=== PATIENT | female | born 2005 | race Caucasian/White ===

== ENCOUNTER 2024-07-13 00:43 | Inpatient (IN) ==
[2024-07-13 01:09] VITALS: BMI 32.0
[2024-07-13 01:12] LABS: BILIRUBIN,URINE NEGATIVE (NEGATIVE); BLOOD/HEMOGLOBIN,URINE 5+ (NEGATIVE); GLUCOSE, URINE NEGATIVE (NEGATIVE); KETONES,URINE 2+ (NEGATIVE); LEUKOCYTE ESTERASE ,URINE 1+ (NEGATIVE); NITRITES,URINE NEGATIVE (NEGATIVE); PROTEIN,URINE 3+ (NEGATIVE); UROBILINOGEN,URINE NORMAL (NORMAL)
[2024-07-13 01:15] LABS: APPEARANCE,URINE SLIGHTLY HAZY (CLEAR); COLOR,URINE YELLOW (YELLOW)
[2024-07-13] MEDS: D5 1/2 NS 1,000 ML 1,000 ML IV SCH (01:18)
[2024-07-13 01:24] LABS: BASOPHILS # (AUTO) 0.1 X10^3/uL (0.0-0.1); BASOPHILS % (AUTO) 0.5 % (0.2-1.0); EOSINOPHILS % (AUTO) 0.1 % (0.9-2.9); HEMATOCRIT 41.5 % (36.0-47.0); HEMOGLOBIN 13.7 g/dL (12.0-16.0); LYMPHOCYTES # (AUTO) 2.1 X10^3/uL (1.3-2.9); LYMPHOCYTES % (AUTO) 12.9 % (21.0-51.0); MEAN CORPUSCULAR HEMOGLOBIN 28.7 pg (27.0-34.0); MEAN CORPUSCULAR HGB CONC 33.1 g/dL (33.0-35.0); MEAN CORPUSCULAR VOLUME 86.6 fL (80.0-100.0); MEAN PLATELET VOLUME 10.4 fL (7.4-11.0); MONOCYTES % (AUTO) 6.3 % (0.0-13.0); NEUTROPHILS # (AUTO) 13.2 x10^3/uL (2.2-4.8); NEUTROPHILS % (AUTO) 80.2 % (42.0-75.0); PLATELET COUNT 173 X10^3/uL (150.0-450.0); RED BLOOD COUNT 4.79 X10^6/uL (3.5-5.4); RED CELL DISTRIBUTION WIDTH 13.8 % (11.6-16.5); WHITE BLOOD COUNT 16.4 X10^3/uL (3.6-10.0)
[2024-07-13 01:29] LABS: AMNISURE ROM TEST THERE IS A RUPTURE (NO RUPTURE)
[2024-07-13 01:32] LABS: ALANINE AMINOTRANSFERASE 18 Units/L (12-78); ALBUMIN 2.6 g/dL (3.4-5.0); ALKALINE PHOSPHATASE 192 Units/L (46-116); ASPARTATE AMINO TRANSFERASE 24 Units/L (15-37); BLOOD UREA NITROGEN 9 mg/dL (7-18); CALCIUM 9.3 mg/dL (8.5-10.1); CARBON DIOXIDE 18.7 mmol/L (21-32); CHLORIDE 102 mmol/L (98-107); COR CA(FOR HYPOALB) 10.4 mg/dL (8.5-10.1); CREATININE 1.09 mg/dL (0.55-1.02); GLUCOSE 95 mg/dL (65-99); POTASSIUM 3.9 mmol/L (3.5-5.1); SODIUM 136 mmol/L (136-145); TOTAL PROTEIN 6.6 g/dL (6.4-8.2); eGFR NON BLACK RACES > 60 (>60)
[2024-07-13] MEDS: PITOCIN IVP ONE (01:40)
[2024-07-13] MEDS: OXYTOCIN 20 UNIT/1,000 ML-NS 20 UNIT/1,000 ML PLAST..BAG IV SCH (01:40)
[2024-07-13] MEDS: XYLOCAINE 1 % (PLAIN) ONE (01:55)
[2024-07-13] MEDS ORDERED: MOTRIN TAB 800 MG PO PRN ×2 (02:29→03:04)
[2024-07-13] MEDS ORDERED: DERMOPLAST PAIN RELIEF SPRAY TOP PRN (03:04)
[2024-07-13] MEDS ORDERED: AMBIEN PO PRN (03:04)
[2024-07-13] MEDS: PITOCIN ONE (03:29)
[2024-07-13] MEDS: D5 1/2 NS 1,000 ML 1,000 ML IV ONE (03:29)
[2024-07-13] MEDS: ADACEL or BOOSTRIX TDaP VACCINE IM ONE (04:13)
[2024-07-13 05:26] LABS: HEMATOCRIT 36.7 % (36.0-47.0)
[2024-07-13] MEDS: MACROBID CAP 100 MG EXT REL PO SCH (09:14)
[2024-07-13] MEDS: PRENATAL PLUS PO SCH (09:14)
[2024-07-14 08:00] VITALS: RESP 21
--- NOTE | 2024-07-14 09:51 | W.DIS.FURT ---
Summary of Discharge Discharge Summary of Date Date of Exam: 07/14/24 Admission Date Date of Admission: 07/13/24 Admission Diagnosis Hospital Course: Precipitious vaginal delivery. course essentially unconplicated. Vital Signs: Vital Signs (72 hours) 07/12/24 12:28 07/13/24 00:45 07/13/24 01:30 Temperature 97.7 F Pulse Rate 85 78 Pulse Rate [Left Brachial] Respiratory Rate 20 20 Blood Pressure 124/88 118/78 Blood Pressure [Right Arm] 128/88 O2 Sat by Pulse Oximetry 97 98 Oxygen Delivery Method Room Air Room Air 07/13/24 01:45 07/13/24 01:56 07/13/24 02:00 Temperature Pulse Rate 87 64 63 Pulse Rate [Left Brachial] Respiratory Rate 20 Blood Pressure 133/73 Blood Pressure [Right Arm] O2 Sat by Pulse Oximetry 100 100 100 Oxygen Delivery Method Room Air 07/13/24 02:00 07/13/24 02:05 07/13/24 02:05 Temperature Pulse Rate 71 Pulse Rate [Left Brachial] Respiratory Rate Blood Pressure 131/78 130/79 Blood Pressure [Right Arm] O2 Sat by Pulse Oximetry 100 Oxygen Delivery Method 07/13/24 02:10 07/13/24 02:10 07/13/24 02:15 Temperature Pulse Rate 75 79 Pulse Rate [Left Brachial] Respiratory Rate Blood Pressure 138/80 Blood Pressure [Right Arm] O2 Sat by Pulse Oximetry 100 100 Oxygen Delivery Method 07/13/24 02:15 07/13/24 01:50 07/13/24 01:45 Temperature Pulse Rate 87 Pulse Rate [Left Brachial] Respiratory Rate 18 Blood Pressure 128/79 133/72 Blood Pressure [Right Arm] O2 Sat by Pulse Oximetry Oxygen Delivery Method Room Air 07/13/24 02:00 07/13/24 02:15 07/13/24 02:30 Temperature Pulse Rate 63 78 80 Pulse Rate [Left Brachial] Respiratory Rate 18 18 17 Blood Pressure 131/78 128/79 153/77 Blood Pressure [Right Arm] O2 Sat by Pulse Oximetry Oxygen Delivery Method 07/13/24 02:45 07/13/24 03:00 07/13/24 03:20 Temperature 98.1 F Pulse Rate 85 85 74 Pulse Rate [Left Brachial] Respiratory Rate 18 18 18 Blood Pressure 149/80 149/80 138/94 Blood Pressure [Right Arm] O2 Sat by Pulse Oximetry Oxygen Delivery Method 07/13/24 03:35 07/13/24 03:50 07/13/24 04:05 Temperature 98.2 F 98.2 F 98.1 F Pulse Rate 72 70 68 Pulse Rate [Left Brachial] Respiratory Rate 18 20 19 Blood Pressure 149/79 148/85 147/87 Blood Pressure [Right Arm] O2 Sat by Pulse Oximetry Oxygen Delivery Method 07/13/24 04:20 07/13/24 05:20 07/13/24 06:20 Temperature 98 F 97.9 F 97.8 F Pulse Rate 69 62 59 L Pulse Rate [Left Brachial] Respiratory Rate 20 17 20 Blood Pressure 146/89 136/74 139/81 Blood Pressure [Right Arm] O2 Sat by Pulse Oximetry Oxygen Delivery Method 07/13/24 07:20 07/13/24 07:00 07/13/24 07:03 Temperature 98.0 F 98.2 F Pulse Rate 42 L Pulse Rate [Left Brachial] 42 L Respiratory Rate 20 18 Blood Pressure 137/77 Blood Pressure [Right Arm] 129/74 O2 Sat by Pulse Oximetry 98 Oxygen Delivery Method Room Air Room Air 07/13/24 08:00 07/13/24 12:00 07/13/24 16:00 Temperature 98.2 F 98.1 F 98.3 F Pulse Rate 42 L Pulse Rate [Left Brachial] 56 L 46 L Respiratory Rate 18 18 18 Blood Pressure 129/72 Blood Pressure [Right Arm] 163/71 137/83 O2 Sat by Pulse Oximetry 97 98 Oxygen Delivery Method Room Air Room Air 07/13/24 20:00 07/13/24 19:00 07/14/24 00:00 Temperature 98.2 F 98.1 F Pulse Rate Pulse Rate [Left Brachial] 48 L 52 L Respiratory Rate 20 19 Blood Pressure Blood Pressure [Right Arm] 134/79 129/77 O2 Sat by Pulse Oximetry 99 99 Oxygen Delivery Method Room Air Room Air Room Air 07/14/24 04:00 07/14/24 07:00 07/14/24 08:00 Temperature 98.2 F 97.7 F Pulse Rate Pulse Rate [Left Brachial] 53 L 51 L Respiratory Rate 18 21 Blood Pressure Blood Pressure [Right Arm] 124/75 115/79 O2 Sat by Pulse Oximetry 98 98 Oxygen Delivery Method Room Air Room Air Room Air Labs: Laboratory Last Values WBC 16.4 X10^3/uL (3.6-10.0) H 07/13/24 01:00 RBC 4.79 X10^6/uL (3.5-5.4) 07/13/24 01:00 Hgb 12.0 g/dL (12.0-16.0) 07/13/24 05:08 Hct 36.7 % (36.0-47.0) 07/13/24 05:08 MCV 86.6 fL (80.0-100.0) 07/13/24 01:00 MCH 28.7 pg (27.0-34.0) 07/13/24 01:00 MCHC 33.1 g/dL (33.0-35.0) 07/13/24 01:00 RDW 13.8 % (11.6-16.5) 07/13/24 01:00 Plt Count 173 X10^3/uL (150.0-450.0) 07/13/24 01:00 MPV 10.4 fL (7.4-11.0) 07/13/24 01:00 Neut % (Auto) 80.2 % (42.0-75.0) H 07/13/24 01:00 Lymph % (Auto) 12.9 % (21.0-51.0) L 07/13/24 01:00 Edgar % (Auto) 6.3 % (0.0-13.0) 07/13/24 01:00 Eos % (Auto) 0.1 % (0.9-2.9) L 07/13/24 01:00 Baso % (Auto) 0.5 % (0.2-1.0) 07/13/24 01:00 Neut # (Auto) 13.2 x10^3/uL (2.2-4.8) H 07/13/24 01:00 Lymph # (Auto) 2.1 X10^3/uL (1.3-2.9) 07/13/24 01:00 Edgar # (Auto) 1.0 x10^3/uL (0.3-0.8) H 07/13/24 01:00 Eos # (Auto) 0.0 x10^3/uL (0.0-0.2) 07/13/24 01:00 Baso # (Auto) 0.1 X10^3/uL (0.0-0.1) 07/13/24 01:00 Absolute Nucleated RBC 0.1 /100WBC 07/13/24 01:00 Sodium 136 mmol/L (136-145) 07/13/24 01:00 Corrected Sodium TNP 07/13/24 01:00 Potassium 3.9 mmol/L (3.5-5.1) 07/13/24 01:00 Chloride 102 mmol/L (98-107) 07/13/24 01:00 Carbon Dioxide 18.7 mmol/L (21-32) L 07/13/24 01:00 BUN 9 mg/dL (7-18) 07/13/24 01:00 Creatinine 1.09 mg/dL (0.55-1.02) H 07/13/24 01:00 Est GFR (MDRD) Af Amer > 60 (>60) 07/13/24 01:00 Est GFR (MDRD) Non-Af > 60 (>60) 07/13/24 01:00 Glucose 95 mg/dL (65-99) 07/13/24 01:00 Calcium 9.3 mg/dL (8.5-10.1) 07/13/24 01:00 Corrected Calcium 10.4 mg/dL (8.5-10.1) H 07/13/24 01:00 Total Bilirubin 0.70 mg/dL (0.2-1.0) 07/13/24 01:00 AST 24 Units/L (15-37) 07/13/24 01:00 ALT 18 Units/L (12-78) 07/13/24 01:00 Alkaline Phosphatase 192 Units/L (46-116) H 07/13/24 01:00 Total Protein 6.6 g/dL (6.4-8.2) 07/13/24 01:00 Albumin 2.6 g/dL (3.4-5.0) L 07/13/24 01:00 Globulin 4.0 g/dL (2.5-4.5) 07/13/24 01:00 Albumin/Globulin Ratio 0.7 Ratio (1.1-2.1) L 07/13/24 01:00 Specimen Type Clean catch urine 07/13/24 01:00 Urine Color Yellow (YELLOW) 07/13/24 01:00 Urine Appearance Slightly hazy (CLEAR) 07/13/24 01:00 Urine pH 6.0 (5.0 - 8.0) 07/13/24 01:00 Ur Specific Liberty 1.010 (1.000-1.030) 07/13/24 01:00 Urine Protein 3+ (NEGATIVE) 07/13/24 01:00 Urine Glucose (UA) Negative (NEGATIVE) 07/13/24 01:00 Urine Ketones 2+ (NEGATIVE) 07/13/24 01:00 Urine Blood 5+ (NEGATIVE) 07/13/24 01:00 Urine Nitrite Negative (NEGATIVE) 07/13/24 01:00 Urine Bilirubin Negative (NEGATIVE) 07/13/24 01:00 Urine Urobilinogen Normal (NORMAL) 07/13/24 01:00 Ur Leukocyte Esterase 1+ (NEGATIVE) 07/13/24 01:00 Placental [id number] There is a rupture (NO RUPTURE) 07/13/24 01:00 Urine Opiates Screen Negative (NEG=<300) 07/13/24 07:18 Urine Methadone Screen Negative (NEG=<300) 07/13/24 07:18 Ur Barbiturates Screen Negative (NEG=<200) 07/13/24 07:18 Ur Phencyclidine Scrn Negative (NEG=<25) 07/13/24 07:18 Ur Amphetamines Screen Negative (NEG=<1000) 07/13/24 07:18 U Benzodiazepines Scrn Negative (NEG=<200) 07/13/24 07:18 Urine Cocaine Screen Negative (NEG=<300) 07/13/24 07:18 U Marijuana (THC) Screen Negative (NEG=<50) 07/13/24 07:18 RPR Nonreactive (NONREACTIVE) 07/13/24 01:00 HIV 1&2 Antibody Non reactive (NONREACTIVE) 07/13/24 01:00 HIV P24 Antigen Non reactive (NONREACTIVE) 07/13/24 01:00 Blood Type A POSITIVE 07/13/24 01:00 Antibody Screen Negative 07/13/24 00:55 Reason For Visit: LABOR Discharge Date Discharge Date: 07/14/24 Discharge Diagnosis All Active Problems (Updated 07/12/24 @ 11:40 by Kia Becerra) Urinary tract infection affecting care of mother in third trimester, antepartum (Acute) Plan of Treatment: Continue with present treatment and follow up plan. Pt is to keep follow up appointment as instructed and take medications as ordered. Discharge Medications Discharge Medications: No Known Allergies Allergy (Verified 07/13/24 01:11) Discharge Plan Discharge Plan Hospital Course: Precipitious vaginal delivery. course essentially unconplicated. Condition: Stable Health Concerns: Post Hospitalization: new medications and changes needed to prevent readmission or further decline. Pt educated and given instructions on all concerns. Plan of Treatment: Continue with present treatment and follow up plan. Pt is to keep follow up appointment as instructed and take medications as ordered. Prescriptions: New ibuprofen 800 mg Tablet 800 mg PO Q8H PRN4 Days Qty: 3 1RF No Action nitrofurantoin monohyd/m-cryst [Macrobid] 100 mg Capsule 100 mg PO BID 7 Days Qty: 14 0RF Rx Instructions: must administer with a meal/food Orders to Discharge Patient Discharge Orders: Discharge (Routine); Ordered 07/14/24 Ordered By: Ashley Carrasquillo Follow ups/Referrals Follow ups/Referrals: GIRISH MITCHELL [Primary Care Provider] - 1 WEEK
[2024-07-14] MEDS: MILK OF MAGNESIA PO PRN (10:38)
[2024-07-14 11:58] VITALS: BP 132/77; PULSE 54; TEMP 98.3; O2SAT 97
--- NOTE | 2024-07-17 11:58 | NOTE.PROOB ---
progress Note OB- Date Date of Exam: 07/14/24 Subjective Data Subjective: No complaints, decreased lochia. Tolerating diet. No N/V. Ambulating well. No dysuria. Objective Data 07/13/24 05:08 07/13/24 01:00 Objective Data: Female in no apparent distress. Lungs: clear to auscultation bilaterally. Heart: regular rate and rhythm. Abdomen: soft, nontender Fundus: below umbilicus Extremities: no clubbing, cyanosis or edema Assessment Assessment: PPD#1, status post normal vaginal delivery. Doing well. Continue plan of care as outlined in orders.
== END 2024-07-14 13:00 | disposition home or self-care (01) | DRG 806 ==
LOC: ER 00:43 → LD 01:09 → MED/SURG 03:09
PROVIDERS: ADMIT Obstetrics & Gynecology; ATTEND Specialist